=== PATIENT | female | born 1970 | race Two or more races ===

== ENCOUNTER 2018-11-09 09:56 | Emergency (ER) | payer SELFPAY ==
[~2018-11-09] VITALS: Ht 165.1 cm; Wt 78.0 kg
[2018-11-09] MEDS ORDERED: ACETAMINOPHEN 325MG TABLET PO ONE (11:15)
[2018-11-09 12:43] VITALS: BP 133/81
== END 2018-11-09 12:49 | disposition home or self-care (01) ==
LOC: ER 09:56
DX: R51 Headache (principal); S90.512A Abrasion, left ankle, initial encounter; I10 Essential (primary) hypertension; E11.9 Type 2 diabetes mellitus without complications; Z90.710 Acquired absence of both cervix and uterus; V43.52XA Car driver injured in collision with other type car in traffic accident, initial encounter; Y93.89 Activity, other specified; Y92.488 Other paved roadways as the place of occurrence of the external cause
CPT/HCPCS: 73600; 99284